=== PATIENT | male | born 1960 | race Caucasian/White ===

== ENCOUNTER 2023-05-30 18:10 | Emergency (ER) | payer BC ==
[~2023-05-30] VITALS: Ht 177.8 cm; Wt 81.6 kg
[~2023-05-30 18:10] MED LIST: CYMBALTA20 MG PO; FOLBEE PLUS1 TAB PO; INSULIN PUMP; LOPRESSOR25 MG PO; MOTRIN800 MG PO; TERAZOSIN5 MG PO; VITAMIN D50000 I3 PO; ZITHROMAX250 MG PO
[2023-05-30] MEDS ORDERED: PERCOCET 5-3251 EACH PO (18:46)
== END 2023-05-30 19:20 | disposition home or self-care (01) ==
LOC: ED 18:10
DX: S52.392A Other fracture of shaft of radius, left arm, initial encounter for closed fracture (principal); S52.512A Displaced fracture of left radial styloid process, initial encounter for closed fracture; I10 Essential (primary) hypertension; E11.40 Type 2 diabetes mellitus with diabetic neuropathy, unspecified; Z88.0 Allergy status to penicillin; W01.0XXA Fall on same level from slipping, tripping and stumbling without subsequent striking against object, initial encounter; Y93.89 Activity, other specified; Y92.002 Bathroom of unspecified non-institutional (private) residence as the place of occurrence of the external cause; Y99.8 Other external cause status